=== PATIENT | male | born 1950 | race Asian ===

== ENCOUNTER 2018-04-08 09:04 | Emergency (ER) | payer OTHER ==
[~2018-04-08] VITALS: Ht 170.2 cm; Wt 67.6 kg
[~2018-04-08 09:04] MED LIST: MAGNESIUM OXID400 MG PO; ZOFRAN8 MG PO
[2018-04-08 09:08] VITALS: Ht 170.2 cm; Wt 67.6 kg
[2018-04-08 09:55] LABS: BASOPHIL % 0.4 % (0-2); PLATELET COUNT 176 x10^3mcL (130-400)
[2018-04-08 09:56] LABS: RED CELL DISTRIBUTION WIDTH 14.7 % (11.5-14.5)
[2018-04-08 10:12] LABS: CALCIUM 8.6 mg/dL (8.5-10.1); CARBON DIOXIDE 32.6 mmol/L (21-32); CHLORIDE SERUM 105 mmol/L (98-107); GFR1 > 60 mL/min; GLUCOSE SERUM 124 mg/dL (74-106); SODIUM SERUM 143 mmol/L (136-145)
[2018-04-08 10:17] LABS: ALBUMIN 3.8 g/dL (3.4-5.0); ALKALINE PHOSPHATASE 56 U/L (46-116); ALT/SGPT 25 U/L (16-63); AST/SGOT 23 U/L (15-37); BILIRUBIN TOTAL 0.59 mg/dL (0.20-1.00); HDL CHOLESTEROL 51 mg/dL (40-60); LIPASE 210 IU/L (73-393); TOTAL PROTEIN, SERUM 7.3 g/dL (6.4-8.2); TRIGLYCERIDES 97 mg/dL (<150)
[2018-04-08 10:19] LABS: CHOLESTEROL 131 mg/dL (<200); CHOLESTEROL/HDL RATIO 2.6
[2018-04-08 10:23] LABS: T3 TOTAL 1.01 ng/mL
[2018-04-08 11:16] LABS: FREE THYROXINE INDEX 2.6 ug/dL (1.4-4.5); T4(THYROXINE) 6.8 ug/dL (4.7-13.3)
[2018-04-08 11:41] VITALS: BP 106/68
== END 2018-04-08 11:41 | disposition home or self-care (01) ==
LOC: ED 09:04
PROVIDERS: Specialist
DX: J20.9 Acute bronchitis, unspecified (principal); I10 Essential (primary) hypertension; E11.9 Type 2 diabetes mellitus without complications; E78.00 Pure hypercholesterolemia, unspecified; Z85.118 Personal history of other malignant neoplasm of bronchus and lung; Z90.49 Acquired absence of other specified parts of digestive tract
CPT/HCPCS: 36415; 82962; 83880; 84439; 87804; J7030